=== PATIENT | male | born 1990 | race Caucasian/White ===

== ENCOUNTER 2016-11-05 04:42 | Emergency (ER) | payer OTHER ==
[~2016-11-05 04:42] MED LIST: ALBU1.25 NEB; ALBU6.7H INH; ALPR1CON PO
[2016-11-05 04:47] VITALS: BP 161/102; PULSE 109; RESP 20; TEMP 98.4; O2SAT 98
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
[2016-11-05] MEDS ORDERED: TETANUS/DIPHTHERIA TOXOID ADULT 0.5 ML VIAL IM ONE (05:00)
[2016-11-05] MEDS ORDERED: ceFAZolin 2 GM PREMIX 50 ML IV ONE (05:00)
[2016-11-05] MEDS ORDERED: TOPA25TA8 PO (05:04)
[2016-11-05] MEDS ORDERED: ALPR2TAB3 PO (05:04)
[2016-11-05] MEDS ORDERED: ALBU6.7H INH (05:04)
[2016-11-05 05:19] VITALS: BP_SYST 129; BP_SYST 194; BP_DIAS 75; BP_DIAS 81
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
[2016-11-05] MEDS ORDERED: IOHEXOL 350 MG/ML 10 ML VIAL (for RAD DIAG) IVCONTRAST ONE (06:06)
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
[2016-11-05] MEDS ORDERED: CIPR-9 PO (06:55)
[2016-11-05 07:40] VITALS: BP 130/70
== END 2016-11-05 07:40 | disposition home or self-care (01) ==
LOC: NEPC 04:42
DX: S81.801A Unspecified open wound, right lower leg, initial encounter (principal); X95.9XXA Assault by unspecified firearm discharge, initial encounter; Z23 Encounter for immunization
CPT/HCPCS: 72170; 73590; 75635; 96374; 99285; J0690; Q9967